=== PATIENT | male | born 1955 | race Caucasian/White ===

== ENCOUNTER 2022-05-12 13:39 | Emergency (ER) | payer MEDICARE, BC ==
[2022-05-12] MEDS ORDERED: Boostrix 0.5 ML (Tdap) VIAL ONE (15:28)
== END 2022-05-12 15:36 | disposition home or self-care (01) ==
LOC: BURERS 13:39
DX: S01.01XA Laceration without foreign body of scalp, initial encounter (principal); R55 Syncope and collapse; I25.10 Atherosclerotic heart disease of native coronary artery without angina pectoris; I25.2 Old myocardial infarction; I10 Essential (primary) hypertension; Z79.82 Long term (current) use of aspirin
CPT/HCPCS: 12002; 70450; 72125; 90471; 90715; 93005

== ENCOUNTER 2025-09-07 14:55 | Emergency (ER) | payer MEDICARE, OTHER ==
[2025-09-07] MEDS ORDERED: Aspirin Chewable 81 MG TAB ONE (15:06)
[2025-09-07] MEDS ORDERED: Nitroglycerin 0.4 MG TAB 1 EACH ONE (15:06)
[2025-09-07 15:13] LABS: #Basophils 0.2 thou/uL (0.0-0.2); #Eosinophils 0.4 thou/uL (0.0-0.7); #Lymphocytes 3.4 thou/uL (1.20-3.40); #Monocytes 0.8 thou/uL (0.11-0.59); #Neutrophils 7.7 thou/uL (1.40-6.50); %Basophils 1.4 % (0.0-1.0); %Eosinophils 3.5 % (0.0-10.0); %Lymphocytes 27.0 % (21.0-51.0); %Monocytes 6.3 % (0.0-10.0); %Neutrophils 61.8 % (42.0-75.0); Hematocrit 47.2 % (42.0-52.0); Hemoglobin 15.4 g/dL (14.0-18.0); Mean Corpuscular Hemoglobin 29.4 pg (27.0-31.0); Mean Corpuscular Volume 90.1 fl (78.0-98.0); Platelet Count 191 10x3/uL (130-400); Red Blood Cell (RBC) Count 5.23 mill/uL (4.70-6.10); White Blood Cell (WBC) Count 12.5 10x3/uL (4.8-10.8)
[2025-09-07 15:18] LABS: INR-International Normal Ratio 1.0; Prothrombin Time 13.6 sec (12.0-14.7)
[2025-09-07 15:19] LABS: PTT 33.0 sec (22.9-36.1)
[2025-09-07 15:27] LABS: ALT (SGPT) 12 U/L (Less than 45); AST (SGOT) 24 U/L (11-34); Albumin 4.3 g/dL (3.1-4.5); Alkaline Phosphatase 67 U/L (40-110); Anion Gap 18 mmol/L (10-20); BUN (Urea Nitrogen) 22 mg/dL (8.4-25.7); Bilirubin, Total 0.7 mg/dL (0.3-1.2); Calc. Creatinine Clearance 0 mL/min (70-130); Calcium 9.1 mg/dL (7.8-10.44); Carbon Dioxide 24 mmol/L (23-31); Chloride 103 mmol/L (98-107); Globulin 3.2 g/dL (2.4-3.5); Glucose 113 mg/dL (83-110); Potassium 3.8 mmol/L (3.5-5.1); Sodium 141 mmol/L (136-145)
[2025-09-07 15:28] LABS: Troponin I 0.106 ng/mL (< 0.028)
[2025-09-07] MEDS ORDERED: Enoxaparin 100 MG (1 mL) SYRINGE ONE (16:14)
== END 2025-09-07 17:00 | disposition short-term general hospital (02) ==
LOC: BURERS 14:55
DX: R07.9 Chest pain, unspecified (principal); R00.1 Bradycardia, unspecified; I25.10 Atherosclerotic heart disease of native coronary artery without angina pectoris; I25.2 Old myocardial infarction; I10 Essential (primary) hypertension
CPT/HCPCS: 71045; 80053; 83880; 84484; 85025; 85610; 85730; 93005; 94760; J1650; J2270; 96372; 96374; 96376